=== PATIENT | female | born 1945 | race Caucasian/White ===

== ENCOUNTER → 2019-03-26 | Outpatient (CLI) | payer MEDICARE | END | disposition home or self-care (01) | LOC: CFH 14:40 | PROVIDERS: ATTEND Internal Medicine Cardiovascular Disease | DX: I35.1 Nonrheumatic aortic (valve) insufficiency (principal); I48.91 Unspecified atrial fibrillation; F17.200 Nicotine dependence, unspecified, uncomplicated | CPT/HCPCS: 93306 ==